=== PATIENT | female | born 1965 | race Caucasian/White ===

== ENCOUNTER 2018-09-16 15:38 | Emergency (ER) | payer SELFPAY ==
[~2018-09-16] VITALS: Ht 160 cm; Wt 45.0 kg
[2018-09-16 16:00] VITALS: BP 97/50
--- NOTE | 2018-09-16 16:38 | NUR ---
BIB FAMILY WITH C/O LLQ PAIN X 3 DAYS, PRODUCTIVE COUGH ("THROWING UP" YELLOW PHLEGM) SINCE LAST NIGHT. DENIES N/V/D; SKIN IS PINK/WARM/DRY; AAOX4 WITH EVEN AND STEADY GAIT; LUNGS CLEAR BL; HR EVEN AND REGULAR; PT DENIES ANY FEVER, CP, SOB AT THIS TIME; PATIENT STATES PAIN OF 5/10 AT THIS TIME; VSS; PATIENT POSITIONED FOR COMFORT; HOB ELEVATED; BEDRAILS UP X2; BED DOWN. ER MD MADE AWARE OF PT STATUS.
--- NOTE | 2018-09-16 17:32 | NUR ---
PATIENT STATES NO NEEDS AT THIS TIME
[2018-09-16] MEDS ORDERED: METOCLOPRAMIDE 10 MG TAB PO ONE (18:00)
[2018-09-16] MEDS ORDERED: ONDANSETRON 4 MG ODT PO ONE (18:00)
[2018-09-16] MEDS ORDERED: FAMOTIDINE 20 MG TAB PO ONE (18:00)
[2018-09-16 18:47] VITALS: BP 97/50
--- NOTE | 2018-09-16 18:47 | NUR ---
Patient discharged with v/s stable. Written and verbal after care instructions given and explained. Patient verbalized understanding. Ambulatory with steady gait. All questions addressed prior to discharge. Advised to follow up with PMD.
== END 2018-09-16 18:47 | disposition home or self-care (01) ==
LOC: MED 15:38
DX: R18.8 Other ascites (principal); R05 Cough; F32.9 Major depressive disorder, single episode, unspecified; Z76.0 Encounter for issue of repeat prescription; Z90.49 Acquired absence of other specified parts of digestive tract
CPT/HCPCS: 99284; J8597; Q0162

== ENCOUNTER 2022-04-30 09:12 | Emergency (ER) | payer OTHER ==
[~2022-04-30] VITALS: Ht 160 cm; Wt 61.7 kg
[2022-04-30 09:16] VITALS: BP 123/81
[2022-04-30 09:55] LABS: BASOPHILS % (AUTO) 0.4 % (0.0-2.0); EOSINOPHILS # (AUTO) 0.2 K/uL (0-0.4); EOSINOPHILS % (AUTO) 2.2 % (0.0-4.0); HEMATOCRIT 40.6 % (36-48); HEMOGLOBIN 13.8 g/dL (12.0-16.0); LYMPHOCYTES # (AUTO) 1.9 K/uL (2.5-16.5); LYMPHOCYTES % (AUTO) 25.7 % (20.5-51.1); MEAN CORPUSCULAR HEMOGLOBIN 32 pg (27-31); MEAN CORPUSCULAR HGB CONC 34 g/dL (33-37); MEAN CORPUSCULAR VOLUME 94.2 fL (80-94); MONOCYTES # (AUTO) 0.5 K/uL (0.8-1.0); MONOCYTES % (AUTO) 6.8 % (1.7-9.3); NEUTROPHILS # (AUTO) 4.8 K/uL (1.8-7.7); NEUTROPHILS % (AUTO) 64.9 % (42.2-75.2); PLATELET COUNT (AUTO) 138 K/uL (140-450); RED BLOOD CELL COUNT(AUTO) 4.31 MIL/uL (4.20-5.40); RED CELL DISTRIBUTION WIDTH 13.4 % (11.6-13.7); WHITE BLOOD COUNT (AUTO) 7.5 K/uL (4.8-10.8)
[2022-04-30 10:07] LABS: CARBON DIOXIDE 29.1 mmol/L (21-32); MAGNESIUM 1.7 mg/dL (1.8-2.4); PHOSPHORUS 4.1 mg/dL (2.5-4.9); POTASSIUM 4.1 mmol/L (3.5-5.1); TOTAL BILIRUBIN 0.6 mg/dL (0.0-1.0)
[2022-04-30] MEDS ORDERED: MAGNESIUM OXIDE 400 MG TAB PO ONE (10:15)
[2022-04-30] MEDS ORDERED: LORazepam 1 MG TAB PO ONE (10:25)
[2022-04-30] MEDS ORDERED: CYCLOBENZAPRINE 10 MG TAB PO ONE (10:25)
[2022-04-30] MEDS ORDERED: MAGN400T7 PO (10:40)
== END 2022-04-30 10:54 | disposition home or self-care (01) ==
LOC: MED 09:12
DX: E86.0 Dehydration (principal); E87.6 Hypokalemia; F41.9 Anxiety disorder, unspecified
CPT/HCPCS: 36415; 80053; 83735; 84100; 85025; 99284